=== PATIENT | female | born 1980 | race Caucasian/White ===

== ENCOUNTER 2018-03-03 09:34 | Emergency (ER) | payer OTHER ==
[2018-03-03 10:01] VITALS: BP 112/73
[2018-03-03] MEDS ORDERED: MOTRIN PO ONE (11:19)
[2018-03-03] MEDS ORDERED: ROBAXIN PO ONE (11:20)
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
== END 2018-03-03 13:07 | disposition home or self-care (01) ==
LOC: ED 09:34
DX: S39.012A Strain of muscle, fascia and tendon of lower back, initial encounter (principal); S16.1XXA Strain of muscle, fascia and tendon at neck level, initial encounter; V49.49XA Driver injured in collision with other motor vehicles in traffic accident, initial encounter; Y93.89 Activity, other specified; Y99.8 Other external cause status; Y92.410 Unspecified street and highway as the place of occurrence of the external cause
CPT/HCPCS: 72040; 72100; 99283